=== PATIENT | female | born 1950 | race Caucasian/White ===

== ENCOUNTER → 2017-12-25 | Outpatient (CLI) | payer MEDICARE ==
--- NOTE | 2017-12-25 17:05 | WOMENS IMAGING REPORT ---
EXAM DESCRIPTION: 3D SCREENING MAMMO BILAT COMPLETED DATE/TIME: 12/25/2017 2:46 pm REASON FOR STUDY: ROUTINE SCREENING; Z12.31 Z12.31 ENCNTR SCREEN MAMMOGRAM FOR MALIGNANT NEOPLASM O F ERI COMPARISON: None. TECHNIQUE: Standard craniocaudal and mediolateral oblique views of each breast recorded using digita l acquisition and breast tomosynthesis. LIMITATIONS: None. FINDINGS: No masses, calcifications or architectural distortion. No areas of suspicion. Read with the assistance of CAD. .[facility] - R2 Cenova Version 1.3 .[facility] Imaging - R2 Cenova Version 1.3 .[facility] - R2 Cenova Version 2.4 .[facility] [place] - R2 Cenova Version 2.4 .[facility] - R2 Drop Tester Version 9.2 IMPRESSION: NORMAL MAMMOGRAM. BIRADS 1. BREAST DENSITY: b. There are scattered areas of fibroglandular density. BIRAD: 1 NEGATIVE RECOMMENDATION: ROUTINE SCREENING COMMENT: The patient has been notified of the results by letter per SA requirements. Additional no tification policies are in place for contacting patient with suspicious or incomplete findings. Quality ID #[id number]: The [employer] recommends an annual screening mammogram for women aged 40 years or over. This facility utilizes a reminder system to ensure that all patients receive reminder letters, and/or direct phone calls for appointments. This includes reminders for routine scr eening mammograms, diagnostic mammograms, or other Breast Imaging Interventions when appropriate. Th is patient will be placed in the appropriate reminder system. The [employer] (ACR) has developed recommendations for screening MRI of the breast s in certain patient populations, to be used in conjunction with mammography. Breast MRI surveillanc e may be appropriate for women with more than 20% lifetime risk of developing breast cancer as deter mined by genetic testing, significant family history of the disease, or history of mantle radiation f or Hodgkins Disease. ACR Practice Guidelines 2008. DBT Technology DBT is a type of tomographic mammography. With conventional mammography, overlapping breast tissue ma y make lesions difficult to detect, even with good compression. DBT uses an x-ray tube that rotates a round the breast, taking images at different angles. These images are then combined to create thin sl ices of the breast that the radiologist can view as a 3D reconstruction. The Mindman[employer] unit can perform full-field digital mammograms (2D imaging); or DBT (3D imaging); or both, in a combination mode that quickly performs both the mammogram and the tomosynthesis scan while the breast is still compressed. PQRS 6045F: Fluoroscopic imaging is not utilized for breast tomosynthesis. TECHNICAL DOCUMENTATION: FINDING NUMBER: (1) ASSESSMENT: (1) JOB ID: [id number] [employer]- All Rights Reserved
== END ==
LOC: WI 14:28
PROVIDERS: ATTEND Physician Assistant
DX: Z12.31 Encounter for screening mammogram for malignant neoplasm of breast (principal)
CPT/HCPCS: 77063; 77067

== ENCOUNTER → 2019-11-14 | Outpatient (CLI) | payer MEDICARE, MEDICAID ==
--- NOTE | 2019-11-14 12:59 | RADIOLOGY REPORT (SQ) ---
EXAM DESCRIPTION: L SPINE WHOLE COMPLETED DATE/TIME: 11/14/2019 12:43 pm REASON FOR STUDY: LUMBAGO W/SCIATICA, LEFT SIDE (M54.42) M54.42 LUMBAGO WITH SCIATICA, LEFT SIDE COMPARISON: None. NUMBER OF VIEWS: Five views including obliques. TECHNIQUE: AP, lateral, oblique, and sacral radiographic images acquired of the lumbar spine. LIMITATIONS: None. FINDINGS: MINERALIZATION: Normal. SEGMENTATION: 5 [id number]-[id number] lumbar vertebral bodies. No transitional anatomy ALIGNMENT: Grade 1 anterolisthesis of L4 on L5. VERTEBRAE: Maintained height. No fracture or worrisome bone lesion. DISCS: Mild disc height loss at L4-5 and L5-S1. Mild lower thoracic anterior osteophytosis. POSTERIOR ELEMENTS: No definite facet fracture. There is lower lumbar facet arthropathy greatest at L4-S1. HARDWARE: None in the spine. PARASPINAL SOFT TISSUES: Normal. PELVIS: Intact as visualized. No fractures or worrisome bone lesions. SI joints intact. OTHER: No other significant finding. IMPRESSION: No acute bony abnormality of the lumbar spine. Grade 1 anterolisthesis of L4 on L5 with associated lower lumbar facet arthropathy. Degenerative dis c disease with disc height loss at L4-S1. TECHNICAL DOCUMENTATION: JOB ID: [id number] [employer]- All Rights Reserved Reading location - IP/workstation name: [email or web address]
== END ==
LOC: RAD 12:24
PROVIDERS: ATTEND Physician Assistant
DX: M54.42 Lumbago with sciatica, left side (principal)
CPT/HCPCS: 72110

== ENCOUNTER 2020-04-19 22:56 | Emergency (ER) | payer MEDICARE, MEDICAID ==
[2020-04-19] MEDS ORDERED: LIDOCAINE 2% VISCOUS SOLN 15 ML UDCUP PO ONE (23:21)
[2020-04-19] MEDS ORDERED: MAG HYDROX/AL HYDROX/SIMETH SUSP 30 ML UDCUP PO ONE (23:21)
--- NOTE | 2020-04-19 23:22 | ER Document Report ---
ED Medical Screen (RME) - General Chief Complaint: Abdominal Pain Stated Complaint: ABDOMINAL PAIN, BACK PAIN Time Seen by Provider: 04/19/20 23:17 Primary Care Provider: MANI VASQUEZ PA-C [Primary Care Provider] - Follow up as needed Notes: Patient presents complaining of epigastric pain that started 2 hours prior to arrival. Patient reports frequent belching and nausea. Patient does have a history of acid reflux hypertension and A. fib that she has had 2 previous cardiac ablations for. I have greeted and performed a rapid initial assessment of this patient. A comprehensive ED assessment and evaluation of the patient, analysis of test results and completion of the medical decision making process will be conducted by additional ED providers. TRAVEL OUTSIDE OF THE [place] IN LAST 30 DAYS: Yes - Related Data Allergies/Adverse Reactions: Iodinated Contrast Media [IV Dye, Iodine Containing] Allergy (Verified 03/12/15 12:22) Past Medical History - Past Medical History Cardiac Medical History: Reports: Hx Atrial Fibrillation, Hx Hypercholesterolemia, Hx Hypertension Past Surgical History: Reports: Hx Cardiac Surgery - ablation x 2 - Immunizations Hx Diphtheria, Pertussis, Tetanus Vaccination: No Physical Exam - Vital signs Vitals: Temp Pulse Resp BP Pulse Ox 97.6 F 72 20 185/86 H 95 04/19/20 23:02 04/19/20 23:02 04/19/20 23:02 04/19/20 23:02 04/19/20 23:02 - Abdominal Tenderness: Tender - Epigastric Course - Vital Signs Vital signs: Temp Pulse Resp BP Pulse Ox 97.6 F 72 20 185/86 H 95 04/19/20 23:17 04/19/20 23:02 04/19/20 23:02 04/19/20 23:02 04/19/20 23:02 Doctor's Discharge - Discharge Referrals: MANI VASQUEZ PA-C [Primary Care Provider] - Follow up as needed
[2020-04-19 23:58] LABS: ABSOLUTE BASOPHILS # (AUTO) 0.1 10^3/uL (0.0-0.2); ABSOLUTE EOSINOPHILS # (AUTO) 0.1 10^3/uL (0.0-0.6); ABSOLUTE LYMPHOCYTES (AUTO) 1.1 10^3/uL (0.5-4.7); ABSOLUTE MONOCYTES (AUTO) 0.5 10^3/uL (0.1-1.4); ABSOLUTE NEUT (AUTO) 6.7 10^3/uL (1.7-8.2); BASOPHILS % (AUTO) 0.9 % (0-2); EOSINOPHILS % (AUTO) 1.6 % (0-6); HEMATOCRIT 36.7 % (36.0-47.0); HEMOGLOBIN 12.5 g/dL (12.0-15.5); MEAN CORPUSCULAR HEMOGLOBIN 29.4 pg (27.0-33.4); MEAN CORPUSCULAR HGB CONC 34.1 g/dL (32.0-36.0); MEAN CORPUSCULAR VOLUME 86 fl (80-97); MONOCYTES % (AUTO) 5.5 % (3-13); PLATELET COUNT 214 10^3/uL (150-450); RED BLOOD COUNT 4.27 10^6/uL (3.72-5.28); RED CELL DISTRIBUTION WIDTH 13.7 % (11.5-14.0); TOTAL CELLS COUNTED % (AUTO) 100 %; WHITE BLOOD COUNT 8.5 10^3/uL (4.0-10.5)
[2020-04-20 00:08] LABS: ALBUMIN 4.2 g/dL (3.5-5.0); ALKALINE PHOSPHATASE 53 U/L (38-126); ASPARTATE AMINO TRANSFERASE 63 U/L (14-36); BILIRUBIN,DIRECT 0.1 mg/dL (0.0-0.4); BILIRUBIN,TOTAL 0.6 mg/dL (0.2-1.3); BLOOD UREA NITROGEN 19 mg/dL (7-20); CARBON DIOXIDE 28 mmol/L (22-30); GLUCOSE 134 mg/dL (75-110); TOTAL PROTEIN 7.1 g/dL (6.3-8.2)
[2020-04-20 00:10] LABS: ANION GAP 7 (5-19); CHLORIDE 101 mmol/L (98-107)
[2020-04-20 00:13] LABS: POTASSIUM 3.3 mmol/L (3.6-5.0)
--- NOTE | 2020-04-20 00:24 | ER Document Report ---
ED General - General Chief Complaint: Abdominal Pain Stated Complaint: ABDOMINAL PAIN, BACK PAIN Time Seen by Provider: 04/19/20 23:17 Primary Care Provider: MANI VASQUEZ PA-C [Primary Care Provider] - Follow up as needed TRAVEL OUTSIDE OF THE [place] IN LAST 30 DAYS: Yes - HPI Notes: 69-year-old female history of GERD, hiatal hernia, hypertension, hyperlipidemia, A. fib status post ablation on anticoagulation (patient says "elixis"denies eliquis) presents with constant severe epigastric abdominal pain radiating to the back that felt like her upper abdomen was very tight and hurt to touch now mostly resolved after ED meds with one prior episode and pulling last year where she was given "a shot " and symptoms resolved. Patient had one episode of upper GI bleed after endoscopy last July which may have been due to patient not stopping anticoagulation for endoscopy, no ulcers were seen on endoscopy. Patient denies any chest pain, shortness of breath, CAD history, dizziness, syncope, nausea vomiting, diarrhea/constipation/melena/bright red blood per rectum, fever, lower abdominal symptoms, urinary symptoms - Related Data Allergies/Adverse Reactions: Iodinated Contrast Media [IV Dye, Iodine Containing] Allergy (Verified 03/12/15 12:22) Past Medical History - General Information source: Patient, [facility] Records - Social History Smoking Status: Never Smoker Family History: Reviewed & Not Pertinent Patient has homicidal ideation: No - Past Medical History Cardiac Medical History: Reports: Hx Atrial Fibrillation, Hx Hypercholesterolemia, Hx Hypertension Past Surgical History: Reports: Hx Cardiac Surgery - ablation x 2 - Immunizations Hx Diphtheria, Pertussis, Tetanus Vaccination: No Review of Systems - Review of Systems Notes: REVIEW OF SYSTEMS: CONSTITUTIONAL : Denies fever, chills, or sweats. EENT: Denies recent cold/sinus symptoms, denies throat pain CARDIOVASCULAR: Denies chest pain, AISHA RESPIRATORY: Denies cough, denies shortness of breath. GASTROINTESTINAL: +abdominal pain, -nausea/vomiting. GENITOURINARY: Denies difficulty urinating, painful urination. FEMALE GENITOURINARY: Denies abnormal vaginal bleeding, vaginal discharge. MUSCULOSKELETAL: Denies neck pain, back pain. SKIN: Denies rash or skin lesions. HEMATOLOGIC : Denies easy bruising or bleeding. LYMPHATIC: Denies swollen, enlarged glands. NEUROLOGICAL: Denies headache, denies change in gait. PSYCHIATRIC: Denies anxiety or stress or depression. Physical Exam - Vital signs Vitals: Temp Pulse Resp BP Pulse Ox 97.6 F 72 20 185/86 H 95 04/19/20 23:02 04/19/20 23:02 04/19/20 23:02 04/19/20 23:02 04/19/20 23:02 - Notes Notes: PHYSICAL EXAMINATION: GENERAL: Well-appearing, well-nourished and in no acute distress. HEAD: Atraumatic, normocephalic. EYES: Pupils equal round and appropriate constriction, sclera anicteric, conjunctiva are normal. ENT: nares patent, moist mucous membranes. NECK: Normal range of motion, supple without lymphadenopathy LUNGS: Breath sounds clear to auscultation bilaterally and equal. No wheezes rales or rhonchi. HEART: Regular rate and rhythm without murmurs ABDOMEN: Soft, nontender, no guarding, no masses, no CVAT EXTREMITIES: Normal range of motion, no pitting or edema. No cyanosis. NEUROLOGICAL: Awake, alert, conversing appropriately, moves all extremities spontaneously. PSYCH: Normal mood, normal affect. SKIN: Warm, Dry, normal turgor, no rashes or lesions noted. Course - Re-evaluation Re-evalutation: 04/20/20 01:06 Given focality of symptoms and tenderness that patient reports previously to abdomen, presentation unlikely area representative of atypical ACS although will obtain troponin and EKG for rule out. Differential includes biliary colic, pancreatitis, abdominal muscle spasm, esophageal spasm. Low suspicion for upper GI bleed, will assess hemoglobin but not consistent with episodic pain now resolved without any bowel symptoms. Will obtain right upper quadrant ultrasound, abdominal labs, troponin, EKG, and reassess. Given time of onset of symptoms 1 troponin sufficient for rule out of ACS. 04/20/20 02:43 Pt symptoms remain resolved, abdominal exam remains nontender, no emergent findings on work-up, cholelithiasis with normal CBD and no pericholecystic fluid or sonographic Mckeon sign or clinical Mckeon sign consistent with likely biliary colic/passed stone. Extensive discussion with patient regarding importance of follow-up for cholelithiasis and possible need for elective surgery and also would be indications for returning to the ED for possible emergent surgery which patient demonstrated understanding of. Patient ready for discharge with PCP and surgery followup. Asymptomatic mild hypokalemia repleted, gave patient results of labs to follow this up with PCP. - Vital Signs Vital signs: Temp Pulse Resp BP Pulse Ox 97.6 F 72 20 185/86 H 95 04/19/20 23:17 04/19/20 23:02 04/19/20 23:02 04/19/20 23:02 04/19/20 23:02 - Laboratory Result Diagrams: 04/19/20 23:45 04/19/20 23:45 Laboratory results interpreted by me: 04/19/20 04/19/20 04/20/20 23:45 23:45 00:40 Seg Neutrophils % 79.0 H Sodium 136.2 L Potassium 3.3 L Glucose 134 H AST 63 H Urine Urobilinogen 2.0 H - EKG Interpretation by Me Additional EKG results interpreted by me: 04/20/20 00:24 Heart rate 71, first-degree AV block, no significant ST elevations or depressions, no significant T wave abnormalities, QTC 488 Discharge - Discharge Clinical Impression: Biliary colic, Hypokalemia Condition: Stable Disposition: HOME, SELF-CARE Additional Instructions: Gallbladder Disease Your evaluation shows evidence of gallbladder disease. The gallbladder is a pouch under the liver which stores bile. Stones, infection, or irritation of the gallbladder cause attacks of pain. Certain foods -- fats in particular -- may provoke attacks. The usual treatment for gallbladder disease is surgical removal of the gallbladder -- called a cholecystectomy. You will be referred to a physician qualified to advise you on the best treatment for your problem. Hospitalization is not necessary. You should stay on a low-fat diet, with frequent SMALL meals. Call the doctor or return at once if you develop severe pain, repeated vomiting, fever, or jaundice (a yellow color in the skin and whites of the eyes). Your potassium was also low your blood pressure was 185/86, discussed this with your primary doctor. Referrals: MANI VASQUEZ PA-C [Primary Care Provider] - Follow up as needed
[2020-04-20] MEDS ORDERED: FAMOTIDINE 20 MG TABLET PO ONE (00:57)
[2020-04-20 00:59] LABS: APPEARANCE,URINE CLEAR; BILIRUBIN,URINE NEGATIVE (NEGATIVE); COLOR,URINE YELLOW; GLUCOSE, URINE NEGATIVE (NEGATIVE); KETONES,URINE NEGATIVE (NEGATIVE); LEUKOCYTE ESTERASE,URINE NEGATIVE (NEGATIVE); NITRITE,URINE NEGATIVE (NEGATIVE); PROTEIN,URINE NEGATIVE (NEGATIVE); URINE SPECIFIC GRAVITY 1.015
[2020-04-20] MEDS ORDERED: POTASSIUM CHLORIDE 10 MEQ TABLET.ER PO ONE (02:07)
--- NOTE | 2020-04-20 02:16 | RADIOLOGY REPORT (SQ) ---
Ultrasound of the right upper quadrant of the abdomen: 04/20/2020 1:13 AM CDT Technique: Multiple grayscale color Doppler images of the right upper quadrant of the abdomen were obtained. Comparison: None available History: 59-year old patient with right upper quadrant abdominal pain. Findings: The visualized portions of the hepatic parenchyma appear diffusely echogenic. There are probable cysts within the liver measuring up to 1.8 x 1.4 x 2.0 cm. Another probable cyst measures up to 3.2 x 2.9 cm. These are seen within the right hepatic lobe. There is no evidence to suggest intra or extrahepatic ductal dilatation. There is normal directional flow seen within the main portal vein. Cholelithiasis is seen. There is nonspecific gallbladder wall thickening. The common duct measures 5-6 mm. The right kidney measures up to 10.4 cm in length. The right kidney demonstrates normal cortical echogenicity with no evidence to suggest hydronephrosis. There is a hypoechoic area at the interpolar region of the right kidney measuring up to 2.7 x 1.7 x 2.1 cm. The visualized portions of the IVC, abdominal aorta, and pancreatic head appear normal. No free intraperitoneal fluid is seen. Impression: Cholelithiasis is seen. There is nonspecific gallbladder wall thickening. The common duct is within normal limits of size. Hepatic steatosis There are probable cyst within the liver.
[2020-04-20 03:32] VITALS: BP 160/86
--- NOTE | 2020-04-20 09:33 | EKG REPORT ---
SEVERITY:- ABNORMAL ECG - SINUS RHYTHM FIRST DEGREE AV BLOCK IVCD, CONSIDER ATYPICAL RBBB : Confirmed by: Eva York MD 20-Apr-2020 09:32:20
== END 2020-04-20 03:32 | disposition home or self-care (01) ==
LOC: ER 22:56
DX: K80.50 Calculus of bile duct without cholangitis or cholecystitis without obstruction (principal); E87.6 Hypokalemia; R10.13 Epigastric pain; M54.9 Dorsalgia, unspecified; K21.9 Gastro-esophageal reflux disease without esophagitis; I10 Essential (primary) hypertension; E78.5 Hyperlipidemia, unspecified; I48.91 Unspecified atrial fibrillation; Z79.02 Long term (current) use of antithrombotics/antiplatelets
CPT/HCPCS: 93005; 99284; 36415; 83690; 85025; 80053; 81001; 84484; 76705; 93010; A9270 ×3; J3490